=== PATIENT | female | born 1990 | race Hispanic/Latino ===

== ENCOUNTER 2016-07-13 17:03 | Outpatient (CLI) | payer MEDICAID | END 2016-07-13 17:04 | disposition home or self-care (01) | LOC: LAB 17:03 | PROVIDERS: ATTEND Obstetrics & Gynecology | DX: O36.0130 Maternal care for anti-D [Rh] antibodies, third trimester, not applicable or unspecified (principal); Z3A.28 28 weeks gestation of pregnancy | CPT/HCPCS: 86850; 86900; 86901 ==

== ENCOUNTER 2016-09-20 04:58 | Outpatient (CLI) | payer MEDICAID ==
[2016-09-20 05:22] VITALS: BP 109/72
[2016-09-20] MEDS ORDERED: VISTARIL PO ONE (06:20)
[2016-09-20] MEDS ORDERED: VISTARIL ONE (06:23)
== END 2016-09-20 06:30 | disposition home or self-care (01) ==
LOC: TRG 04:58
PROVIDERS: ATTEND Obstetrics & Gynecology
DX: O62.9 Abnormality of forces of labor, unspecified (principal); Z3A.38 38 weeks gestation of pregnancy
CPT/HCPCS: Q0177

== ENCOUNTER 2016-09-20 08:51 | Inpatient (IN) | payer MEDICAID ==
[2016-09-20] MEDS ORDERED: PITOCin/NS 20 UNIT/1000ML DRIP 20,000 MILLIUNITS/1,000 ML BAG IV ONE (08:53)
[2016-09-20] MEDS: PITOCin/NS 20 UNIT/1000ML DRIP 20 UNITS/1,000 ML BAG IV SCH ×2 (09:00→10:20)
[2016-09-20] MEDS ORDERED: SUBLIMAZE ONE (09:00)
[2016-09-20] MEDS ORDERED: BRETHINE SUB-Q PRN (09:12)
[2016-09-20] MEDS ORDERED: BRETHINE IVP PRN (09:12)
[2016-09-20] MEDS ORDERED: MINERAL OIL PO PRN (09:12)
[2016-09-20] MEDS ORDERED: XYLOCAINE 2% INFILTRATI ONE (09:12)
[2016-09-20] MEDS ORDERED: ePHEDrine SULFATE IV PRN (09:12)
[2016-09-20] MEDS ORDERED: PHENERGAN PO PRN ×2 (09:12→09:15)
[2016-09-20] MEDS ORDERED: SUBLIMAZE IV PRN (09:12)
[2016-09-20] MEDS ORDERED: NARCAN 0.4 MG/1 ML IV PRN (09:12)
[2016-09-20] MEDS ORDERED: BENADRYL PO PRN (09:15)
[2016-09-20] MEDS ORDERED: DULCOLAX PR PRN (09:15)
[2016-09-20] MEDS ORDERED: LANSINOH TP PRN (09:15)
[2016-09-20] MEDS ORDERED: PHENERGAN PR PRN (09:15)
[2016-09-20] MEDS ORDERED: TUCKS PAD TP PRN (09:15)
[2016-09-20] MEDS ORDERED: DERMOPLAST TP PRN (09:15)
[2016-09-20] MEDS ORDERED: NORCO 5/325 PO PRN (09:15)
[2016-09-20] MEDS ORDERED: MILK OF MAGNESIA PO PRN (09:15)
[2016-09-20] MEDS ORDERED: TYLENOL PO PRN (09:15)
[2016-09-20] MEDS ORDERED: TORADOL IV PRN (09:15)
[2016-09-20] MEDS ORDERED: ZOFRAN IV PRN (09:15)
[2016-09-20] MEDS ORDERED: ANUCORT-HC PR PRN (09:15)
--- NOTE | 2016-09-20 09:22 | History and Physical Report ---
History of Present Illness Date of examination: 09/20/16 Date of admission: 09/20/16 08:51 Chief complaint: contractions delivered in ambulance History of present illness: This is a 26 yo at 38 +1 week. patient stated that she began jefe yesterday was evaluated in triage and sent home. She started jefe regularly at 2am and called EMS and delivered in parking lot in ambulance. She is here with baby in arm. cord was cut and clamped and nurses attended to baby. She was admitted for PP course. Past History Past Medical History: migraines Past Surgical History: no surgical history Social history: , smoking. denies: alcohol abuse, IV drug use - Obstetrical History Expected Date of Delivery: 10/03/16 Actual Gestation: 38 Week(s) 1 Day(s) : 2 Para: 1 Hx # Term Pregnancies: 0 Number of Pregnancies: 0 Spontaneous Abortions: 0 Induced : 0 Number of Living Children: 1 Medications and Allergies Allergies Allergy/AdvReac Type Severity Reaction Status Date / Time No Known Allergies Allergy Verified 01/18/15 04:53 Home Medications Medication Instructions Recorded Confirmed Last Taken Type Fluconazole [Diflucan] 150 mg PO QDAY #1 tablet 07/07/13 01/18/15 Unknown Rx Sulfamethoxazole/Trimethoprim 1 each PO BID #20 tablet 07/07/13 01/18/15 Unknown Rx [Bactrim DS] Ibuprofen [Motrin] 600 mg PO Q8H PRN #20 tablet 09/13/13 01/18/15 Unknown Rx Sulfamethoxazole/Trimethoprim 1 each PO BID #20 tablet 09/13/13 01/18/15 Unknown Rx [Bactrim Ds] Active Meds: Active Medications Ephedrine Sulfate (Ephedrine Sulfate) 10 mg IV Q2M PRN PRN Reason: Hypotension Stop: 09/20/16 09:17 Fentanyl (Sublimaze) 100 mcg IV Q2H PRN PRN Reason: Labor Pain Lactated Ringer's (Lactated Ringers) 1,000 mls @ 125 mls/hr IV DIRECT CHANTEL Oxytocin/Sodium Chloride (Pitocin/Ns 20 Unit/1000ml Drip) 20 units in 1,000 mls @ 125 mls/hr IV DIRECT CHANTEL Oxytocin/Sodium Chloride (Pitocin/Ns 30 Unit/500ml) 30 units in 500 mls @ 1 mls /hr IV TITR CHANTEL; 1 MILLIUNITS/MIN PRN Reason: Protocol Oxytocin/Sodium Chloride (Pitocin/Ns 30 Unit/500ml) 30 units in 500 mls @ 0 mls /hr IV TITR CHANTEL; As Directed PRN Reason: Protocol Lidocaine (Xylocaine 2%) 20 ml INFILTRATI ONCE ONE Stop: 09/20/16 09:13 Mineral Oil (Mineral Oil) 30 ml PO QHS PRN PRN Reason: Constipation Naloxone HCl (Narcan 0.4 Mg/1 Ml) 0.1 mg IV Q2MIN PRN PRN Reason: Res Rate </= 8 or 02 SAT < 92% Promethazine HCl (Phenergan) 25 mg PO Q6H PRN PRN Reason: Nausea And Vomiting Terbutaline Sulfate (Brethine) 0.25 mg SUB-Q ONCE PRN PRN Reason: Hyperstimulation/Hypertonicity Stop: 09/20/16 09:13 Terbutaline Sulfate (Brethine) 0.25 mg IVP ONCE PRN PRN Reason: Hyperstimulation/Hypertonicity Stop: 09/20/16 09:13 Review of Systems All systems: negative - Vital Signs Vital signs: Vital Signs Pulse Pulse Ox 114 H 87 09/20/16 08:53 09/20/16 08:53 Temp Pulse Resp BP Pulse Ox 102 H 129/83 98 09/20/16 09:13 09/20/16 09:12 09/20/16 09:13 - Physical Exam Breasts: Positive: deferred Cardiovascular: Regular rate, Normal S1, Normal S2 Lungs: Positive: Clear to auscultation, Normal air movement Abdomen: Positive: normal appearance, soft, normal bowel sounds. Negative: distention, tenderness Genitourinary (Female): Positive: normal external genitalia, normal perenium Vagina: Positive: normal moisture Uterus: Positive: enlarged Anus/Rectum: Positive: normal perianal skin Extremities: Positive: normal Deep Tendon Reflex Grade: Normal +2 Results All other labs normal. Assessment and Plan A/P PPD#0 s/p in ambulance with cord attached admit ivf with pitocin set up for delviery of placenta pain meds ( fentanyl eval for lacerations stable VSS bleeding min
--- NOTE | 2016-09-20 09:31 | Procedure Note ---
OB Delivery Note - Delivery Date of Delivery: 09/20/16 Surgeon: ANA MARÍA GOYAL - Vaginal Intrapartum events: precipitous labor- <3hr Delivery induction: none Delivery monitor: none Route of delivery: Delivery placenta: spontaneous Episiotomy: none Delivery laceration: other (labia lac no bleeding hemostatic ) Anesthesia: none Delivery comments: Patient was transported via stretcher by EMS with baby in mothers arms. Evaluated perineum no lac noted cord cut and clamped and placenta delviered spontaneous with 3 vessel cord at 0901. Per EMS baby delivered at 0843 viable female APgars 8 and 9. weight 3344g=7 pounds 10 oz. Evaluation showed none bleeding labia tear. no repair required. cervix no tears. EBL 300 cc. Mother and baby bonding. patient tolerated procedure well. - Infant A at 1 minute: 8 at 5 minutes: 9 Infant Gender: Female
[2016-09-20] MEDS ORDERED: PRENATAL VITAMIN PO SCH (10:00)
[2016-09-20] MEDS ORDERED: LACTATED RINGERS 1,000 ML IV SCH (10:00)
[2016-09-20] MEDS ORDERED: PITOCin/NS 30 UNIT/500ML 30 UNITS/500 ML BAG IV SCH ×2 (10:00)
[2016-09-20] MEDS ORDERED: SODIUM CHLORIDE FLUSH SYRINGE 10 ML IV NR (10:00)
[2016-09-20] MEDS ORDERED: SENOKOT S PO SCH (10:00)
[2016-09-20] MEDS: MOTRIN PO SCH ×3 (10:43→22:10)
[2016-09-20 11:36] LABS: Hematocrit 28.9 % (30.3-42.9); Hemoglobin 9.2 gm/dl (10.1-14.3)
[2016-09-20] MEDS: PERCOCET 5/325 PO PRN (20:50)
[2016-09-21 01:32] LABS: Hematocrit 22.9 % (30.3-42.9); Hemoglobin 7.7 gm/dl (10.1-14.3)
[2016-09-21] MEDS: MOTRIN PO SCH ×2 (04:29→09:40)
[2016-09-21] MEDS: COLACE PO SCH ×2 (05:29→09:40)
[2016-09-21] MEDS ORDERED: BOOSTRIX IM ONE (06:00)
--- NOTE | 2016-09-21 09:08 | Progress Note ---
Assessment and Plan O: VSS AF PP H/H: 7.7/22.9 A: Stable PP Day 1 Anemia P: D/c home Subjective - Subjective Date of service: 09/21/16 Patient reports: appetite normal, voiding normally, pain well controlled, flatus , ambulating normally : doing well Objective - Vital Signs Latest vital signs: Vital Signs Temp Pulse Pulse Resp BP BP Pulse Ox 09/20/16 23:10 98.6 F 77 16 114/74 09/20/16 19:30 98.4 F 86 18 111/76 09/20/16 15:57 98.2 F 78 18 112/64 09/20/16 12:00 98.7 F 101 H 20 127/79 09/20/16 11:12 105 H 118/71 09/20/16 11:00 98.8 F 09/20/16 10:57 113 H 121/61 09/20/16 10:48 105 H 97 09/20/16 10:43 98 H 98 09/20/16 10:42 104 H 130/79 09/20/16 10:38 107 H 98 09/20/16 10:33 111 H 97 09/20/16 10:28 111 H 97 09/20/16 10:27 106 H 141/82 09/20/16 10:23 101 H 98 09/20/16 10:18 104 H 99 09/20/16 10:13 104 H 120/65 99 09/20/16 10:08 111 H 100 09/20/16 10:03 105 H 99 09/20/16 09:58 107 H 100 09/20/16 09:57 101 H 125/78 09/20/16 09:53 99 H 99 09/20/16 09:48 101 H 100 09/20/16 09:43 107 H 99 09/20/16 09:42 102 H 124/73 09/20/16 09:38 107 H 99 09/20/16 09:33 104 H 99 09/20/16 09:31 98.0 F 18 09/20/16 09:28 108 H 98 09/20/16 09:27 110 H 120/68 09/20/16 09:23 105 H 98 09/20/16 09:18 117 H 98 09/20/16 09:13 102 H 98 09/20/16 09:12 102 H 129/83 03/22/17 09:08 96 H 99 Intake and Output 09/20/16 09/21/16 09/21/16 22:59 06:59 14:59 Intake Total 1205 500 Output Total 500 Balance 705 500 Intake: IV 125 PITOCin/NS 20 UNIT/1000ML 125 DRIP 20 units In 1,000 ml @ 125 mls/hr IV DIRECT CHANTEL Rx#:[id number] Oral 600 300 Intake, Free Water 480 200 Output: Urine 500 Void 500 Other: Total, Intake Amount 480 300 Total, Output Amount 500 - Exam Breasts: Present: deferred Lungs: Present: Normal air movement Abdomen: Present: normal appearance, soft. Absent: distention, tenderness Vulva: both: normal Uterus: Present: normal, firm, fundal height below umbilicus. Absent: bogginess , tenderness Extremities: Present: normal. Absent: edema - Labs Labs: Abnormal lab results 09/20/16 09/21/16 Range/Units 10:20 00:57 Hgb 9.2 L 7.7 L (10.1-14.3) gm/dl Hct 28.9 L 22.9 L D (30.3-42.9) %
--- NOTE | 2016-09-21 09:11 | Discharge Summary ---
Providers - Providers Date of Admission: 09/20/16 08:51 Date of discharge: 09/21/16 Attending physician: ANA MARÍA GOYAL MD Primary care physician: ANA MARÍA GOYAL MD Hospitalization Reason for admission: active labor, IUP at term Delivery: Episiotomy: none Laceration: other (labia) Other procedures: none complications: none Discharge diagnosis: IUP at term delivered [place] baby: female Condition at discharge: Good Disposition: DISCHARGED TO HOME OR SELFCARE Plan - Discharge Medications Prescriptions: Docusate Sodium [Colace CAP] 100 mg PO BID #60 capsule Ferrous Sulfate [Feosol 325 MG tab] 325 mg PO TID #120 tablet Ibuprofen [Motrin 600 MG tab] 600 mg PO Q6H PRN #30 tablet PRN Reason: Pain - Provider Discharge Summary Activity: routine, no sex for 6 weeks, no heavy lifting 4 weeks, no strenuous exercise Diet: routine Instructions: routine Additional instructions: [] Smoking cessation referral if applicable(refer to patient education folder for contact #) [] Refer to [facility]'s [facility] Booklet Call your doctor immediately for: * Fever > 100.5 * Heavy vaginal bleeding ( >1 pad per hour) * Severe persistent headache * Shortness of breath * Reddened, hot, painful area to leg or breast * Drainage or odor from incision. * Keep incision clean and dry at all times and follow doctor's instructions regarding bathing/showering - Follow up plan Follow up: ANA MARÍA GOYAL MD [Primary Care Provider] - GERMÁN WALKER CNM [Advanced Practice Nurse] - (RTO 4 weeks )
[2016-09-21] MEDS ORDERED: M-M-R II VACCINE SUB-Q ONE (09:15)
[2016-09-21] MEDS: PERCOCET 5/325 PO PRN (12:22)
[2016-09-21 14:22] VITALS: BP 110/72
== END 2016-09-21 14:00 | disposition home or self-care (01) | DRG 769 ==
LOC: LD 08:51 → OB 12:17
PROVIDERS: ADMIT Obstetrics & Gynecology; ATTEND Obstetrics & Gynecology
PROC: 10D17ZZ Extraction of Products of Conception, Retained, Via Natural or Artificial Opening (ICD-10-PCS; principal; 2016-09-20)
DX: O73.0 Retained placenta without hemorrhage (principal); O90.81 Anemia of the puerperium; D64.9 Anemia, unspecified; O99.355 Diseases of the nervous system complicating the puerperium; G43.909 Migraine, unspecified, not intractable, without status migrainosus; O99.335 Smoking (tobacco) complicating the puerperium
CPT/HCPCS: 36415; 85014; 85018; 86850; 86900; 86901; 88307; 90471; 90715; 99211; G0463; J2590; J3010

== ENCOUNTER 2018-12-30 19:35 | Observation (INO) | payer MEDICAID ==
[2018-12-30] MEDS ORDERED: NITRATEST PAPER MC ONE (21:00)
[2018-12-30] MEDS ORDERED: LACTATED RINGERS 1,000 ML IV ONE (21:17)
[2018-12-30 22:12] LABS: Bacteria,Urine 1+ /HPF (Negative); Bilirubin,Urine NEG (Negative); Blood,Urine MOD (Negative); Calcium Oxalate Crystals,Urine FEW; Color,Urine Yellow (Yellow); Mucus,Urine 1+ /HPF; Urobilinogen,Urine < 2.0 mg/dL (<2.0)
[2018-12-30 22:12] LABS: Amphetamine Screen,Urine PRESUMPTIVE NEGATIVE; Benzodiazepines Screen,Urine PRESUMPTIVE NEGATIVE; Cannabinoid Screen,Urine PRESUMPTIVE NEGATIVE; Cocaine Screen,Urine PRESUMPTIVE NEGATIVE; Methadone Screen,Urine PRESUMPTIVE NEGATIVE; Opiate Screen,Urine PRESUMPTIVE NEGATIVE
[2018-12-30 23:41] VITALS: BP 120/86
== END 2018-12-31 | disposition home or self-care (01) ==
LOC: INTOOBSV 19:35 → LD 19:35
PROVIDERS: ADMIT Obstetrics & Gynecology; ATTEND Obstetrics & Gynecology
DX: Z34.93 Encounter for supervision of normal pregnancy, unspecified, third trimester (principal); Z3A.38 38 weeks gestation of pregnancy
CPT/HCPCS: 59025; 80307; 81001; G0378; G0379; J7120; 96360

== ENCOUNTER 2018-12-31 02:34 | Inpatient (IN) | payer MEDICAID ==
[2018-12-31] MEDS ORDERED: LACTATED RINGERS 1,000 ML IV SCH (03:00)
[2018-12-31] MEDS ORDERED: LACTATED RINGERS 1,000 ML ONE (03:10)
[2018-12-31] MEDS ORDERED: PITOCin/NS 20 UNIT/1000ML DRIP 20,000 MILLIUNITS/1,000 ML BAG IV ONE (03:10)
[2018-12-31 03:32] LABS: Basophils # (Auto) 0.1 K/mm3 (0.0-0.1); Basophils % (Auto) 0.3 % (0.0-1.8); Eosinophils % (Auto) 0.1 % (0.0-4.3); Hematocrit 30.3 % (30.3-42.9); Hemoglobin 9.8 gm/dl (10.1-14.3); Lymphocytes # (Auto) 2.1 K/mm3 (1.2-5.4); Lymphocytes % (Auto) 10.7 % (13.4-35.0); Mean Corpuscular HGB Conc 32 % (30-34); Mean Corpuscular Volume 84 fl (79-97); Monocytes # (Auto) 0.9 K/mm3 (0.0-0.8); Monocytes % (Auto) 4.8 % (0.0-7.3); Platelet Count 304 K/mm3 (140-440); Red Blood Count 3.59 M/mm3 (3.65-5.03); Red Cell Distribution Width 16.2 % (13.2-15.2)
[2018-12-31] MEDS ORDERED: TYLENOL PO PRN (03:54)
[2018-12-31] MEDS ORDERED: LANSINOH TP PRN (03:54)
[2018-12-31] MEDS ORDERED: DULCOLAX PR PRN (03:54)
[2018-12-31] MEDS ORDERED: TUCKS PAD TP PRN (03:54)
[2018-12-31] MEDS ORDERED: BENADRYL PO PRN (03:54)
[2018-12-31] MEDS ORDERED: ZOFRAN IV PRN (03:54)
[2018-12-31] MEDS ORDERED: PHENERGAN PO PRN (03:54)
[2018-12-31] MEDS ORDERED: MILK OF MAGNESIA PO PRN (03:54)
[2018-12-31] MEDS ORDERED: MINERAL OIL PO PRN (03:56)
--- NOTE | 2018-12-31 03:58 | History and Physical Report ---
History of Present Illness Date of admission: 12/31/18 02:48 Chief complaint: labor History of present illness: 28yo TRUE 39 5/7 weeks presented in active labor and went on to have s pontaneous vaginal delivery. She reports care with Dr. Carlene Hercules. She reports good movement, no loss of fluid and no vaginal bleeding. She denies any complications such as gestational diabetes or hypertension. Her labs are available in chart which reflect she is GBS negative and Rh negative. Past History - Obstetrical History : 3 Number of Living Children: 2 Medications and Allergies Allergies Allergy/AdvReac Type Severity Reaction Status Date / Time No Known Allergies Allergy Verified 12/31/18 02:59 Active Meds: Active Medications Acetaminophen (Tylenol) 650 mg PO Q4H PRN PRN Reason: Pain MILD(1-3)/Fever >100.5/TESFAYE Bisacodyl (Dulcolax) 10 mg WA BID PRN PRN Reason: Constipation Diphenhydramine HCl (Benadryl) 25 mg PO Q6H PRN PRN Reason: Itching Ibuprofen (Ibuprofen) 600 mg PO Q6H CHANTEL Magnesium Hydroxide (Milk Of Magnesia) 30 ml PO HS PRN PRN Reason: Constipation Multi-Ingredient Ointment (Lansinoh) 1 applic TP PRN PRN PRN Reason: Sore Nipples Ondansetron HCl (Zofran) 4 mg IV Q8H PRN PRN Reason: Nausea And Vomiting Promethazine HCl (Phenergan) 25 mg PO Q6H PRN PRN Reason: Nausea And Vomiting Sodium Chloride (Sodium Chloride Flush Syringe 10 Ml) 10 ml IV PRN NR Witch Mell/Glycerin (Tucks Pad) 1 each TP PRN PRN PRN Reason: Hemorrhoid/cleansing/soothing - Vital Signs Vital signs: Vital Signs Pulse Pulse Ox 88 97 12/31/18 03:06 12/31/18 03:06 Temp Pulse Resp BP Pulse Ox 103 H 91 12/31/18 03:15 12/31/18 03:15 - Obstetrical Cervical Dilatation: 10 Cervical Effacement Percentage: 100 station: +3 Results Result Diagrams: 12/31/18 03:00 Abnormal lab results 12/31/18 Range/Units 03:00 WBC 19.8 H (4.5-11.0) K/mm3 RBC 3.59 L (3.65-5.03) M/mm3 Hgb 9.8 L (10.1-14.3) gm/dl MCH 27 L (28-32) pg RDW 16.2 H (13.2-15.2) % Lymph % (Auto) 10.7 L (13.4-35.0) % Saunders # 0.9 H (0.0-0.8) K/mm3 Seg Neutrophils % 84.1 H (40.0-70.0) % Seg Neutrophils # 16.6 H (1.8-7.7) K/mm3 All other labs normal. Assessment and Plan - Patient Problems (1) Active labor at term Onset Date: 01/18/15 Current Visit: No Status: Acute Plan to address problem: Antental labs drawn GBS negative Anticipate spontaneous vaginal delivery
[2018-12-31] MEDS ORDERED: PITOCin/NS 20 UNIT/1000ML DRIP 20 UNITS/1,000 ML BAG IV SCH (04:00)
[2018-12-31] MEDS ORDERED: SODIUM CHLORIDE FLUSH SYRINGE 10 ML IV NR (04:00)
--- NOTE | 2018-12-31 04:03 | Procedure Note ---
OB Delivery Note - Delivery Estimated blood loss: <100cc - Vaginal Delivery presentation: vertex Delivery position: OA Intrapartum events: precipitous labor- <3hr Delivery induction: none Delivery monitor: external FHT Route of delivery: Delivery placenta: spontaneous Episiotomy: none Delivery laceration: none Anesthesia: none - Infant A at 1 minute: 8 at 5 minutes: 9 Infant Gender: Male (7lb 1oz, vigorous and crying, placed on maternal abdomen, bulb suctioned)
[2018-12-31] MEDS: IBUPROFEN PO SCH ×4 (04:26→16:42)
[2018-12-31 16:17] LABS: Hematocrit 25.9 % (30.3-42.9); Hemoglobin 8.8 gm/dl (10.1-14.3)
[2019-01-01] MEDS: IBUPROFEN PO SCH ×5 (00:21→20:39)
--- NOTE | 2019-01-01 10:51 | Progress Note ---
Assessment and Plan - Patient Problems (1) Active labor at term Onset Date: 01/18/15 Current Visit: No Status: Acute Subjective - Subjective Interval history: duplicate note Objective - Vital Signs Vital Signs: Vital Signs - 12hr 12/31/18 01/01/19 23:32 09:55 Temperature 98.0 F 98 F Pulse Rate 95 H 94 H Respiratory 20 20 Rate Blood Pressure 104/64 Blood Pressure 126/57 [Left] O2 Sat by Pulse 98 Oximetry - Labs Labs: Abnormal Labs 12/31/18 12/31/18 03:00 15:30 WBC 19.8 H RBC 3.59 L Hgb 9.8 L 8.8 L Hct 25.9 L MCH 27 L RDW 16.2 H Lymph % (Auto) 10.7 L [place] # 0.9 H Seg Neutrophils % 84.1 H Seg Neutrophils # 16.6 H Laboratory Results - last 24 hr 12/31/18 12/31/18 03:00 15:30 Hgb 8.8 L Hct 25.9 L RPR Nonreactive
--- NOTE | 2019-01-01 10:54 | Discharge Summary ---
Providers - Providers Date of Admission: 12/31/18 02:48 Date of discharge: 01/01/19 Attending physician: FAY MEZA Primary care physician: DR. MELISSA HENAO Hospitalization Reason for admission: active labor Delivery: Procedure details: OB Delivery Note - Delivery Estimated blood loss: <100cc - Vaginal Delivery presentation: vertex Delivery position: OA Intrapartum events: precipitous labor- <3hr Delivery induction: none Delivery monitor: external FHT Route of delivery: Delivery placenta: spontaneous Episiotomy: none Delivery laceration: none Anesthesia: none - Infant A at 1 minute: 8 at 5 minutes: 9 Infant Gender: Male (7lb 1oz, vigorous and crying, placed on maternal abdomen, bulb suctioned) Episiotomy: none Laceration: none complications: none Hospital course: 28yo presents in active labor, had normal spontaneous vaginal delivery. Leukocytosis noted on initial presentation was resolved before discharge. She was counseled to continue iron supplementation for asymptomatic anemia at discharge. Condition at discharge: Stable Disposition: DC- TO HOME OR SELFCARE - Discharge Diagnoses (1) Active labor at term Status: Acute (2) Anemia affecting Status: Acute Comment: Anemia present on admission. Asymptomatic. Plan discharge home on oral iron. f/U 6wks with primary OB. Plan - Discharge Medications Prescriptions: Ferrous Sulfate [Feosol 325 MG tab] 325 mg PO BID 30 Days #60 tablet - Provider Discharge Summary Additional instructions: [] Smoking cessation referral if applicable(refer to patient education folder for contact #) [] Refer to [facility]'s [facility] Booklet Call your doctor immediately for: * Fever > 100.5 * Heavy vaginal bleeding ( >1 pad per hour) * Severe persistent headache * Shortness of breath * Reddened, hot, painful area to leg or breast * Drainage or odor from incision. * Keep incision clean and dry at all times and follow doctor's instructions regarding bathing/showering - Follow up plan Follow up: FAY MEZA MD [Primary Care Provider] - 7 Days Forms: [facility] Discharge Summary
--- NOTE | 2019-01-01 12:13 | Progress Note ---
Assessment and Plan - Patient Problems (1) Active labor at term Onset Date: 01/18/15 Current Visit: No Status: Acute Plan to address problem: s/p spontaneous vaginal delivery - recovering well Leukocytosis WBC 19 on admission - ordered to verify trending down doing well. Anticipate discharge early tomorrow. (2) Anemia affecting Current Visit: Yes Status: Acute Plan to address problem: Asymptomatic. Discharge home on oral iron. Subjective - Subjective Interval history: 28yo PPD#1 s/p . She has no complaints of excessive bleeding, headache or abdominal pain. Her infant is doing well and in the room with her. She denies any cough, dysuria or previous infection. Patient reports: appetite normal : doing well Objective - Vital Signs Latest vital signs: Vital Signs Temp Pulse Resp BP BP Pulse Ox 01/01/19 09:55 98 F 94 H 20 126/57 12/31/18 23:32 98.0 F 95 H 20 104/64 98 12/31/18 17:23 97.8 F 76 16 121/78 98 12/31/18 16:42 20 12/31/18 13:02 97.9 F 71 16 103/68 100 Intake and Output 12/31/18 01/01/19 01/01/19 23:59 07:59 15:59 Intake Total 480 360 Output Total 600 800 Balance -600 480 -440 Intake: Oral 480 360 Output: Urine 600 800 Void 600 800 Other: Total, Intake Amount 480 360 Total, Output Amount 600 800 # Voids Void 3 - Exam Abdomen: Present: soft, other (fundus firm, below umbilicus) - Labs Labs: Abnormal lab results 12/31/18 Range/Units 15:30 Hgb 8.8 L (10.1-14.3) gm/dl Hct 25.9 L (30.3-42.9) %
[2019-01-01 14:44] LABS: Basophils % (Auto) 0.4 % (0.0-1.8); Eosinophils # (Auto) 0.1 K/mm3 (0.0-0.4); Eosinophils % (Auto) 0.9 % (0.0-4.3); Hematocrit 27.7 % (30.3-42.9); Hemoglobin 9.2 gm/dl (10.1-14.3); Lymphocytes # (Auto) 2.3 K/mm3 (1.2-5.4); Lymphocytes % (Auto) 21.1 % (13.4-35.0); Mean Corpuscular HGB Conc 33 % (30-34); Mean Corpuscular Volume 85 fl (79-97); Monocytes # (Auto) 0.8 K/mm3 (0.0-0.8); Monocytes % (Auto) 7.2 % (0.0-7.3); Platelet Count 284 K/mm3 (140-440); Red Blood Count 3.24 M/mm3 (3.65-5.03); Red Cell Distribution Width 16.5 % (13.2-15.2)
[2019-01-01 17:08] VITALS: BP 108/66
== END 2019-01-01 22:35 | disposition home or self-care (01) | DRG 775 ==
LOC: TRG 02:34 → LD 02:48 → OB 05:13
PROVIDERS: ADMIT Obstetrics & Gynecology; ATTEND Obstetrics & Gynecology
PROC: 10E0XZZ Delivery of Products of Conception, External Approach (ICD-10-PCS; principal; 2018-12-31)
PROC: 10H073Z Insertion of Monitoring Electrode into Products of Conception, Via Natural or Artificial Opening (ICD-10-PCS; 2018-12-31)
PROC: 3E033VJ Introduction of Other Hormone into Peripheral Vein, Percutaneous Approach (ICD-10-PCS; 2018-12-31)
DX: O62.3 Precipitate labor (principal); O99.02 Anemia complicating childbirth; Z3A.39 39 weeks gestation of pregnancy; Z37.0 Single live birth; O75.89 Other specified complications of labor and delivery; Z67.91 Unspecified blood type, Rh negative
CPT/HCPCS: 36415; 59025; 80307; 81001; 85014; 85018; 85025; 86592; 86706; 86762; 86850; 86900; 86901; 87806; 96360; G0378; G0379; J2590; J7120